=== PATIENT | female | born 1965 | race Caucasian/White ===

== ENCOUNTER 2016-12-09 14:34 | Outpatient (CLI) | payer MEDICARE, MEDICAID | END 2016-12-09 14:36 | LOC: POD 14:34 | PROVIDERS: ATTEND Podiatrist | DX: B35.1 Tinea unguium (principal); M79.674 Pain in right toe(s); M79.675 Pain in left toe(s) | CPT/HCPCS: G0463 ==

== ENCOUNTER 2017-02-28 14:45 | Outpatient (CLI) | payer MEDICARE, OTHER | END 2017-02-28 14:46 | LOC: POD 14:45 | PROVIDERS: ATTEND Podiatrist | DX: B35.1 Tinea unguium (principal); M79.674 Pain in right toe(s); M79.675 Pain in left toe(s) | CPT/HCPCS: 11721; G0463 ==

== ENCOUNTER 2017-05-16 13:35 | Outpatient (CLI) | payer MEDICARE, OTHER | END 2017-05-16 13:36 | LOC: POD 13:35 | PROVIDERS: ATTEND Podiatrist | DX: B35.1 Tinea unguium (principal); M79.674 Pain in right toe(s); M79.675 Pain in left toe(s) | CPT/HCPCS: 11721; G0463 ==

== ENCOUNTER 2017-08-25 13:12 | Outpatient (CLI) | payer MEDICARE, OTHER | END 2017-08-25 13:13 | LOC: POD 13:12 | PROVIDERS: ATTEND Podiatrist | DX: B35.1 Tinea unguium (principal); M79.674 Pain in right toe(s); M79.675 Pain in left toe(s) | CPT/HCPCS: 11721; G0463 ==

== ENCOUNTER 2017-11-24 13:19 | Outpatient (CLI) | payer MEDICARE, OTHER | END 2017-11-24 13:20 | LOC: POD 13:19 | PROVIDERS: ATTEND Podiatrist | DX: B35.1 Tinea unguium (principal); M79.674 Pain in right toe(s); M79.675 Pain in left toe(s) | CPT/HCPCS: 11721; G0463 ==

== ENCOUNTER 2018-02-10 17:33 | Emergency (ER) | payer MEDICARE, OTHER ==
[2018-02-10] MEDS ORDERED: SULFACETAMIDE SODIUM 10% OP ONE (17:58)
[2018-02-10] MEDS ORDERED: OPTH OP ONE (17:58)
--- NOTE | 2018-02-10 18:05 | ED Physician Documentation ---
Eye Problem - HPI Stated Complaint: L eye drainage Chief Complaint: General Adult Additional Information: senior living resident with green eye drainage that was worse after she woke from nap. Attendant with pt does not know when this began and says pt recently had pink eye. No treatment. Associated symptoms: redness, matting Location: left eye Apparent Injury: no - ROS CONST: no problems - PAST HX Past History: other (Downs' syndrome; bipolar, MR) Allergies/Adverse Reactions: Allergies Allergy/AdvReac Type Severity Reaction Status Date / Time codeine Allergy Verified 02/10/18 17:51 Penicillins Allergy Verified 02/10/18 17:51 Home Medications: Ambulatory Orders Medication Instructions Recorded NK [NK] 02/10/18 - SOCIAL HX Smoking History: non-smoker - FAMILY HX Family History: no significant history - VITAL SIGNS Vital Signs: Vital Signs Temp Pulse Resp BP Pulse Ox 96.7 F L 84 16 120/51 94 02/10/18 17:40 02/10/18 17:40 02/10/18 17:40 02/10/18 17:40 02/10/18 17:40 - REVIEWED ASSESSMENTS Nursing Assessment Reviewed: Yes Vitals Reviewed: Yes ED Results Lab/Radiology - Orders Orders: ED Orders Category Date Time Status Sulfacetamide Sodium [Bleph-10 10% Opth [place]] Med 02/10/18 17:58 Discontinued 2 drop OP NOW ONE Eye Problem Physical Exam - Physical Exam General Appearance: alert, mild distress Examined with Slit Lamp: No Visual Acuity: see nursing assessment Eyelids: nml inspection, everted for exam (L) Conjunctiva and Sclera: injected (L), exudate (L) Corneas: nml inspection EOM: other (PERRL, conjugate movements) Anterior Chambers: nml inspection Skin: nml color, warm, skin intact Neck/Back: nml inspection Respiratory: no resp distress Neuro/Psych: neuro intact Discharge Clincal Impression: Conjunctivitis Referrals: Ari Ramirez [Primary Care Provider] - 2 Days Condition: Good Disposition: HOME, SELF-CARE Decision to Admit: NO Decision Time: 18:10
[2018-02-10] MEDS ORDERED: PHARMACY KEY 1 EACH EACH MC ONE (18:10)
[2018-02-10 18:12] VITALS: BP 120/51
== END 2018-02-10 18:24 | disposition home or self-care (01) ==
LOC: ED 17:33
DX: H10.9 Unspecified conjunctivitis (principal)
CPT/HCPCS: 99282

== ENCOUNTER 2018-03-09 12:52 | Outpatient (CLI) | payer MEDICARE, OTHER | END 2018-03-09 13:00 | LOC: POD 12:52 | PROVIDERS: ATTEND Podiatrist | DX: B35.1 Tinea unguium (principal); M79.674 Pain in right toe(s); M79.675 Pain in left toe(s) | CPT/HCPCS: 11721; G0463 ==